=== PATIENT | female | born 1990 | race Two or more races ===

== ENCOUNTER 2022-12-24 12:29 | Emergency (ER) | payer OTHER ==
[2022-12-24 12:40] VITALS: BMI 27.1
[2022-12-24] MEDS ORDERED: ACETAMINOPHEN 500 MG TABLET (FP) PO ONE (15:22)
[2022-12-24] MEDS ORDERED: SODIUM CHLORIDE 0.9% 500 ML INFUS.BAG IV ONE (15:22)
[2022-12-24] MEDS ORDERED: METOCLOPRAMIDE HCL INJECTION 10 MG/2 ML VIAL IVPB ONE (15:23)
[2022-12-24] MEDS ORDERED: METOCLOPRAMIDE HCL INJECTION 10 MG/2 ML VIAL ONE (16:25)
[2022-12-24] MEDS ORDERED: ACETAMINOPHEN 500 MG TABLET (FP) ONE (16:29)
[2022-12-24 17:31] LABS: PH,URINE 6.5 (5.0-8.0); URINE APPEARANCE CLEAR; URINE BILIRUBIN NEGATIVE (NEGATIVE); URINE COLOR DK YELLOW; URINE GLUCOSE (UA) NEGATIVE (NEGATIVE); URINE KETONE TRACE (NEGATIVE); URINE LEUK ESTERASE NEGATIVE (NEGATIVE); URINE NITRITE NEGATIVE (NEGATIVE); URINE PROTEIN NEGATIVE (NEGATIVE)
[2022-12-24 17:32] LABS: BASO % 0.4 % (0-2.0); EOS % 0.3 % (0-4.5); HEMATOCRIT 43.8 % (32.4-45.2); HEMOGLOBIN 14.4 GM/dL (10.7-15.3); MCH 31.1 pg (25.7-33.7); MEAN CELL VOLUME 94.3 fl (80-96); MEAN PLT VOLUME 10.3 fl (7.5-11.1); MONO % 3.6 % (3.8-10.2); NEUT % 74.7 % (42.8-82.8); PLATELET COUNT 261 10^3/uL (134-434); RBC 4.65 M/mm3 (3.60-5.2); RDW 12.2 % (11.6-15.6); WHITE BLOOD COUNT 10.5 K/mm3 (4.0-10.0)
[2022-12-24 17:42] LABS: HCG,QUALITATIVE URINE Negative
[2022-12-24 17:54] LABS: POTASSIUM 4.4 mmol/L (3.5-5.1)
[2022-12-24 17:57] LABS: ALBUMIN 3.8 g/dl (3.4-5.0); BLOOD UREA NITROGEN 9.7 mg/dL (7-18)
[2022-12-24 18:01] LABS: BILIRUBIN,TOTAL 0.4 mg/dL (0.2-1); TOT PROT 8.2 g/dl (6.4-8.2)
[2022-12-24 18:06] LABS: CREATININE 0.8 mg/dL (0.55-1.3)
[2022-12-24 18:53] LABS: THROAT:GRP A STREP NOT DETECTED (NOTDETECTED)
[2022-12-24 19:51] VITALS: BP 104/53; PULSE 80; RESP 18; TEMP 98.6
== END 2022-12-24 19:53 | disposition home or self-care (01) ==
LOC: JER 12:29
PROC: 3E033GC Introduction of Other Therapeutic Substance into Peripheral Vein, Percutaneous Approach (ICD-10-PCS; principal; 2022-12-24)
DX: M54.50 Low back pain, unspecified (principal); M79.10 Myalgia, unspecified site; R51.9 Headache, unspecified; R11.0 Nausea; R42 Dizziness and giddiness; M79.604 Pain in right leg; M79.605 Pain in left leg; Z20.822 Contact with and (suspected) exposure to COVID-19
CPT/HCPCS: 0241U-QW; 36415; 80053; 81003; 82550; 84703; 85025; 87086; 87651; 99284-25